=== PATIENT | female | born 1985 | race Caucasian/White ===

== ENCOUNTER 2019-09-13 11:55 | Emergency (ER) | payer SELFPAY ==
[~2019-09-13] VITALS: Ht 170.2 cm; Wt 77.8 kg
[2019-09-13] MEDS ORDERED: SODIUM CHLORIDE FLUSH 10ML SYR IVF ONE (12:30)
[2019-09-13] MEDS ORDERED: ONDANSETRON 2MG/ML, 2ML IVPush ONE (12:30)
[2019-09-13] MEDS ORDERED: SODIUM CHLORIDE 0.9% 1,000ML IVBOLUS ONE (12:30)
[2019-09-13 12:47] LABS: BASOPHILS # (AUTO) 0.01 x10^3/uL (0-0.1); BASOPHILS % (AUTO) 0 % (0-1); EOSINOPHILS % (AUTO) 0 % (1-7); LYMPHOCYTES # (AUTO) 0.56 x10^3/uL (1-3.4); LYMPHOCYTES % (AUTO) 15 % (22-44); MD NO; MEAN CORPUSCULAR HEMOGLOBIN 30.4 pg (27.0-34.8); MEAN CORPUSCULAR HGB CONC 33.4 g/dL (32.4-35.8); MEAN CORPUSCULAR VOLUME 90.9 fL (80-100); MEAN PLATELET VOLUME 8.2 fL (7.4-10.4); MONOCYTES # (AUTO) 0.47 x10^3/uL (0.2-0.8); MONOCYTES % (AUTO) 13 % (2-9); NEUTROPHILS # (AUTO) 2.61 x10^3/uL (1.8-6.8); NEUTROPHILS % (AUTO) 72 % (42-75); PLATELET COUNT 160 x10^3/uL (130-400); RED BLOOD COUNT 4.66 x10^6/uL (3.82-5.3)
[2019-09-13 12:54] LABS: ALBUMIN 3.8 g/dL (3.4-5.0); ANION GAP 10 mmol/L (5-15); CALCIUM 8.7 mg/dL (8.5-10.1); CHLORIDE 105 mmol/L (98-107); CREATININE 0.57 mg/dL (0.55-1.02)
[2019-09-13 13:00] LABS: RAPID INFLUENZA A Negative (Negative); RAPID INFLUENZA B POSITIVE (Negative)
[2019-09-13] MEDS ORDERED: ONDANSETRON 2MG/ML, 2ML ONE (13:03)
--- NOTE | 2019-09-13 13:15 | NUR ---
IV PLACED, MED AND IVF GIVEN PER ERP ORDER. WARM BLANKET PROVIDED, LIGHTS DIMMED, CALL LIGHT WITHIN REACH.
--- NOTE | 2019-09-13 14:00 | NUR ---
2ND LITER NS INFUSING. CALL LIGHT WITHIN REACH.
--- NOTE | 2019-09-13 14:37 | NUR ---
IVF NOT INFUSING, LINE FLUSHED AND INFUSING WELL AT THIS TIME. CONTINUE TO AWAIT IVF BOLUS, THEN DISCHARGE. D/C INSTRUCTS PROVIDED TO PT AND FAMILY, ALL QUESTIONS ANSWERED.
[2019-09-13 15:21] VITALS: BP 129/72
== END 2019-09-13 15:23 | disposition home or self-care (01) ==
LOC: ED 13:04
DX: J10.1 Influenza due to other identified influenza virus with other respiratory manifestations (principal); E86.0 Dehydration
CPT/HCPCS: 36415; 80048; 82040; 85025; 87400; 96361; 96374; 99283; J2405; J7030